=== PATIENT | female | born 2000 | race Caucasian/White ===

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

== ENCOUNTER 2022-08-08 11:38 | Day surgery (SDC) | payer OTHER ==
[~2022-08-08] VITALS: Ht 162.6 cm; Wt 79.8 kg
[~2022-08-08 11:38] MED LIST changes: +CEPH500C PO; +KETO10TAB PO; +TAMS1CAP17 PO; +ceFAZolin SOD 2 GM in IV 1 EA IV ONE
[2022-08-08] MEDS ORDERED: LR 1,000 ML IV SCH ×2 (12:00→14:40)
[2022-08-08] MEDS ORDERED: ACETAMINOPHEN 1000MG 100ML IV BAG As Ordered ONE (12:17)
[2022-08-08] MEDS ORDERED: ONDANSETRON 4MG 2ML VIAL As Ordered ONE (12:17)
[2022-08-08] MEDS ORDERED: LIDOCAINE 2% 100MG/5ML SDV (FOR ANES.) As Ordered ONE (12:17)
[2022-08-08] MEDS ORDERED: propofoL 200 MG/20 ML VIAL As Ordered ONE (12:17)
[2022-08-08] MEDS ORDERED: fentaNYL 100 MCG/2 ML INJECTION As Ordered ONE (12:18)
[2022-08-08] MEDS ORDERED: MIDAZOLAM INJ 2MG/2ML VIAL As Ordered ONE (12:18)
[2022-08-08] MEDS ORDERED: ISOVUE-300 61% 50ML VIAL As Ordered ONE (13:37)
[2022-08-08] MEDS ORDERED: ROCURONIUM BROMIDE 50MG/5ML VIAL As Ordered ONE (14:00)
[2022-08-08] MEDS ORDERED: SUGAMMADEX SODIUM 500 MG/5 ML VIAL (BRIDION) As Ordered ONE (14:00)
[2022-08-08] MEDS ORDERED: fentaNYL 100 MCG/2 ML INJECTION IV PRN (14:40)
[2022-08-08] MEDS ORDERED: ONDANSETRON 4MG 2ML VIAL IV PRN (14:40)
[2022-08-08] MEDS ORDERED: OXYB5TAB10 PO (14:45)
[2022-08-08] MEDS ORDERED: MACR100C43 PO (14:45)
[2022-08-08] MEDS ORDERED: PYRI1TAB5 PO (14:45)
[2022-08-08] MEDS: HYDROMORPHONE HCL 0.5 MG/ 0.5 ML SYRINGE IV PRN ×4 (15:23→15:42)
[2022-08-08] MEDS: oxyCODONE 5MG TAB PO PRN ×2 (15:39→17:19)
[2022-08-08] MEDS ORDERED: METOCLOPRAMIDE INJ 10MG/2ML VIAL IV PRN (16:30)
[2022-08-08] MEDS ORDERED: HYDR-3713 PO (17:05)
[2022-08-08] MEDS ORDERED: KETOROLAC 30 MG/ML 1ML VIAL IV STA (17:48)
[2022-08-08] MEDS ORDERED: PHENAZOPYRIDINE 100 MG TAB PO STA (17:48)
[2022-08-08 18:20] VITALS: BP 110/54
== END 2022-08-08 18:36 | disposition home or self-care (01) ==
LOC: M SDC 11:38
PROVIDERS: ATTEND Urology
DX: N20.1 Calculus of ureter (principal); Z79.899 Other long term (current) drug therapy
CPT/HCPCS: 52356; 74420; 81025; C1769; C2617; J1100; J2405

== ENCOUNTER → 2024-08-09 | Outpatient (REF) | payer OTHER ==
[~2024-08-09] MED LIST changes: +HYDR-3713 PO; +MACR100C43 PO; +OXYB5TAB14 PO; +PYRI1TAB5 PO; -ceFAZolin SOD 2 GM in IV 1 EA IV ONE
[2024-08-09 13:32] LABS: APPEARANCE, URINE HAZY (CLEAR); BACTERIA, URINE AUTO 1+ (NEGATIVE); BILIRUBIN, URINE AUTO NEGATIVE (NEGATIVE); BLOOD, URINE BLOOD NEGATIVE (NEGATIVE); COLOR, URINE YELLOW (YELLOW); GLUCOSE, URINE (UA) AUTO NEGATIVE (NEGATIVE); KETONE, URINE AUTO NEGATIVE (NEGATIVE); LEUKOCYTE ESTERASE, URINE AUTO TRACE (NEGATIVE); MUCUS, URINE SMALL (NEGATIVE); NITRITE, URINE AUTO NEGATIVE (NEGATIVE); PROTEIN, URINE AUTO NEGATIVE (NEGATIVE); RBC, URINE AUTO 0 /HPF (0-3); SPECIFIC GRAVITY URINE AUTO 1.011 (1.002-1.035); SQUAMOUS EPITHELIAL CELL UR AU 3 /HPF (0-6); UROBILINOGEN, URINE AUTO 0.2 mg/dL (0.0-2.0); WBC, URINE AUTO 1 /HPF (0-3)
== END ==
LOC: M SMT 13:03
PROVIDERS: ATTEND Urology
DX: R30.0 Dysuria (principal)